=== PATIENT | male | born 1980 | race Caucasian/White ===

== ENCOUNTER 2018-01-05 23:44 | Emergency (ER) | payer MEDICAID, OTHER ==
[~2018-01-05] VITALS: Ht 167.6 cm; Wt 62.0 kg
[~2018-01-05 23:44] MED LIST: NO HOME MEDS
[2018-01-06 01:28] LABS: ALANINE AMINOTRANSFERASE 31 U/L (12-78); ALBUMIN 3.8 G/DL (3.4-5.0); ALBUMIN/GLOBULIN RATIO 1.1 (1.1-1.5); ALKALINE PHOSPHATASE 98 IU/L (46-116); ANION GAP 8 (8-16); ASPARTATE AMINO TRANSFERASE 22 U/L (10-37); BILIRUBIN,TOTAL 0.5 MG/DL (0.1-1.0); BLOOD UREA NITROGEN 11 MG/DL (7-18); BUN/CREATININE RATIO 14.7 (5.4-32.0); CALCIUM 8.6 MG/DL (8.5-10.1); CHLORIDE 104 MMOL/L (99-107); CREATININE 0.75 MG/DL (0.60-1.10); GLUCOSE 94 MG/DL (70-104); POTASSIUM 3.7 MMOL/L (3.5-5.1); SODIUM 141 MMOL/L (135-145); TOTAL CARBON DIOXIDE 28.7 MMOL/L (24-32); TOTAL PROTEIN 7.2 G/DL (6.4-8.2); eGFR > 90 ML/MIN
[2018-01-06 01:54] VITALS: BP 108/61
== END 2018-01-06 01:56 | disposition home or self-care (01) ==
LOC: ER 23:45
DX: E86.0 Dehydration (principal); Z98.890 Other specified postprocedural states
CPT/HCPCS: 36415; 80053; 99283

== ENCOUNTER 2023-11-29 21:27 | Emergency (ER) | payer MEDICAID ==
[~2023-11-29] VITALS: Ht 167.6 cm; Wt 61.8 kg
[2023-11-30] MEDS: normal saline 1000ML IV soln IVB STA (00:44)
[2023-11-30] MEDS: methylPREDNISolone sod succ 125mg/2ml vial IV ONE (00:46)
[2023-11-30] MEDS: diphenhydrAMINE 50 mg/ml inj IV ONE (00:46)
[2023-11-30 00:58] LABS: BASOPHILS % (AUTO) 0.5 % (0-1); EOSINOPHILS # (AUTO) 0.1 X10'3 (0-0.9); EOSINOPHILS % (AUTO) 1.8 % (0-6); HEMATOCRIT 44.8 % (42.0-52.0); HEMOGLOBIN 15.5 g/dl (14.0-17.9); LYMPHOCYTES # (AUTO) 2.2 X10'3 (1.1-4.8); LYMPHOCYTES % (AUTO) 31.2 % (21-51); MEAN CORPUSCULAR HEMOGLOBIN 31.3 PG (27.0-31.0); MEAN CORPUSCULAR HGB CONC 34.5 g/dL (33.0-36.5); MEAN CORPUSCULAR VOLUME 90.8 FL (78-98); MONOCYTES # (AUTO) 0.5 X10'3 (0-0.9); MONOCYTES % (AUTO) 6.8 % (2-12); NEUTROPHILS # (AUTO) 4.2 X10'3 (1.8-7.7); NEUTROPHILS % (AUTO) 59.7 % (42-75); PLATELET COUNT 291 X10'3 (140-440); RED BLOOD COUNT 4.94 X10'6 (4.70-6.10)
[2023-11-30 01:05] LABS: ALBUMIN 4.2 G/DL (3.4-5.0); ANION GAP 4 (8-16); BLOOD UREA NITROGEN 13 MG/DL (7-18); BUN/CREATININE RATIO 17.8 (10.0-20.0); CALCIUM 9.3 MG/DL (8.5-10.1); CHLORIDE 102 MMOL/L (99-107); CREATININE 0.73 MG/DL (0.60-1.10); GLUCOSE 102 MG/DL (70-104); POTASSIUM 4.2 MMOL/L (3.5-5.1); SODIUM 142 MMOL/L (135-145); TOTAL CARBON DIOXIDE 35.8 MMOL/L (24-32); eCRCL 115 ML/MIN; eGFR > 90 ML/MIN
[2023-11-30] MEDS ORDERED: PRED20TA PO (02:10)
[2023-11-30] MEDS ORDERED: DIPH25CA83 PO (02:10)
[2023-11-30 02:55] VITALS: BP 105/76; PULSE 70; RESP 16; O2SAT 99
[2023-11-30 03:07] VITALS: TEMP 98.4
== END 2023-11-30 03:09 | disposition home or self-care (01) ==
LOC: ER 21:27
DX: T78.49XA Other allergy, initial encounter (principal); X58.XXXA Exposure to other specified factors, initial encounter; E86.0 Dehydration
CPT/HCPCS: 36415; 71045; 80048; 85025; 96361; 96374; 96375; 99284; J1200; J2930; J7030

== ENCOUNTER 2023-12-11 23:19 | Emergency (ER) | payer MEDICAID ==
[~2023-12-11] VITALS: Ht 167.6 cm; Wt 61.0 kg
[~2023-12-11 23:19] MED LIST changes: +DIPH25CA83 PO
[2023-12-11 23:33] VITALS: BP 138/57; PULSE 86; RESP 18; O2SAT 96
[2023-12-12] MEDS: diphenhydrAMINE 25mg capsule PO ONE (01:14)
[2023-12-12] MEDS: triamcinolone acetonide 40mg/ml inj IM ONE (01:14)
[2023-12-12 01:24] VITALS: TEMP 98.5
== END 2023-12-12 01:27 | disposition home or self-care (01) ==
LOC: ER 23:20
DX: T78.1XXA Other adverse food reactions, not elsewhere classified, initial encounter (principal); R51.9 Headache, unspecified; H57.10 Ocular pain, unspecified eye; Z88.8 Allergy status to other drugs, medicaments and biological substances; X58.XXXA Exposure to other specified factors, initial encounter
CPT/HCPCS: 96372; 99283; J3301; Q0163

== ENCOUNTER 2024-10-19 21:35 | Emergency (ER) | payer MEDICAID ==
[~2024-10-19] VITALS: Ht 167.6 cm; Wt 62.1 kg
[2024-10-19] MEDS: normal saline 1000ML IV soln IVB ONE (23:42)
[2024-10-20 01:10] VITALS: BP 124/80; PULSE 70; RESP 16; TEMP 97.4; O2SAT 99
== END 2024-10-20 01:11 | disposition home or self-care (01) ==
LOC: ER 21:36
DX: Z00.8 Encounter for other general examination (principal)
CPT/HCPCS: 96360; 96361; 99283; J7030

== ENCOUNTER 2024-10-28 12:48 | Emergency (ER) | payer MEDICAID ==
[~2024-10-28] VITALS: Ht 167.6 cm; Wt 68.0 kg
[~2024-10-28 12:48] MED LIST changes: -DIPH25CA83 PO
[2024-10-28 15:12] LABS: BASOPHILS % (AUTO) 0.4 % (0-1); EOSINOPHILS # (AUTO) 0.1 X10'3 (0-0.9); EOSINOPHILS % (AUTO) 1.4 % (0-6); HEMOGLOBIN 15.4 g/dl (14.0-17.9); LYMPHOCYTES # (AUTO) 1.3 X10'3 (1.1-4.8); LYMPHOCYTES % (AUTO) 20.3 % (21-51); MEAN CORPUSCULAR HEMOGLOBIN 30.5 PG (27.0-31.0); MEAN CORPUSCULAR HGB CONC 34.1 g/dL (33.0-36.5); MEAN CORPUSCULAR VOLUME 89.2 FL (78-98); MONOCYTES # (AUTO) 0.5 X10'3 (0-0.9); MONOCYTES % (AUTO) 7.7 % (2-12); NEUTROPHILS # (AUTO) 4.5 X10'3 (1.8-7.7); NEUTROPHILS % (AUTO) 70.2 % (42-75); PLATELET COUNT 288 X10'3 (140-440); RED BLOOD COUNT 5.05 X10'6 (4.70-6.10); RED CELL DISTRIBUTION WIDTH 13.4 % (11.5-14.5); WHITE BLOOD COUNT 6.5 X10'3 (4.5-11.0)
[2024-10-28 15:21] LABS: ALANINE AMINOTRANSFERASE 33 U/L (12-78); ALBUMIN 4.1 G/DL (3.4-5.0); ALBUMIN/GLOBULIN RATIO 1.4 (1.1-1.5); ALKALINE PHOSPHATASE 85 IU/L (46-116); ANION GAP 4 (8-16); ASPARTATE AMINO TRANSFERASE 22 U/L (10-37); BILIRUBIN,TOTAL 0.5 MG/DL (0.1-1.0); BLOOD UREA NITROGEN 9 MG/DL (7-18); BUN/CREATININE RATIO 14.8 (10.0-20.0); CHLORIDE 105 MMOL/L (99-107); CREATININE 0.61 MG/DL (0.60-1.10); GLUCOSE 90 MG/DL (70-104); POTASSIUM 4.3 MMOL/L (3.5-5.1); SODIUM 141 MMOL/L (135-145); TOTAL CARBON DIOXIDE 32.5 MMOL/L (24-32); eCRCL 142 ML/MIN; eGFR > 90 ML/MIN
[2024-10-28] MEDS ORDERED: LORA10CA PO (15:56)
[2024-10-28 16:27] VITALS: BP 122/71; PULSE 72; RESP 14; TEMP 98; O2SAT 99
== END 2024-10-28 16:29 | disposition home or self-care (01) ==
LOC: ER 12:49
DX: J30.1 Allergic rhinitis due to pollen (principal); Z98.890 Other specified postprocedural states
CPT/HCPCS: 36415; 80053; 85025; 99283

== ENCOUNTER 2024-10-31 09:35 | Emergency (ER) | payer MEDICAID ==
[~2024-10-31] VITALS: Ht 167.6 cm; Wt 66.5 kg
[~2024-10-31 09:35] MED LIST changes: +LORA10CA PO
[2024-10-31 09:43] VITALS: BP 118/89; PULSE 77; RESP 18; O2SAT 98
[2024-10-31] MEDS: triamcinolone acetonide 40mg/ml inj IM ONE (10:13)
[2024-10-31 10:20] VITALS: TEMP 97.6
== END 2024-10-31 10:22 | disposition home or self-care (01) ==
LOC: ER 09:36
DX: J30.1 Allergic rhinitis due to pollen (principal); Z79.899 Other long term (current) drug therapy; Z98.890 Other specified postprocedural states
CPT/HCPCS: 96372; 99283; J3301